=== PATIENT | female | born 1995 | race Caucasian/White ===

== ENCOUNTER 2016-07-24 10:27 | Emergency (ER) | payer SELFPAY ==
[~2016-07-24] VITALS: Ht 157.5 cm; Wt 80.0 kg
[~2016-07-24 10:27] MED LIST: IMITREX
[2016-07-24 10:35] VITALS: Ht 157.5 cm; Wt 80.0 kg
[2016-07-24] MEDS ORDERED: SOD CHLORIDE 0.9% 1,000 ML IV STA (12:01)
[2016-07-24] MEDS ORDERED: ONDANSETRON 4 MG INJ IV STA (12:01)
[2016-07-24] MEDS ORDERED: KETOROLAC 30 MG INJ IV STA (12:01)
--- NOTE | 2016-07-24 12:15 | ERD ---
ER Documentation Chief Complaint Date/Time DATE: 07/24/16 TIME: 12:05 Chief Complaint NAUSEA X 1 WEEK, NUMBNESS ON LEG, PALPITATIONS HPI 20-year-old otherwise healthy female presents the emergency department complaining of nausea, vomiting and intermittent lower right sided pelvic pain which she described as a 6 out of 10 cramping pain 1 week. Nausea and vomiting associated with eating. Additionally she notes constipation and straining with defecation. Last dermal bowel movement was 1 week ago. Patient also complains of heart palpitations which she states has been experiencing 4 months however frequency has increased to 2 times per day. Additionally patient reports numbness and tingling of the right leg associated with intermittent low back pain. She states the pain is relieved with repositioning of the leg. She denies any weakness, difficulty with ambulation, or weightbearing. She denies any vaginal bleeding or discharge, dysuria, hematuria , flank pain, shortness of breath, chest pain. Last normal period was 15 June and normal for her. ROS All systems reviewed and are negative except as per history of present illness. Medications Home Meds Active Scripts Electrolyte,Oral (Pedialyte) 1,000 Ml Solution, 100 ML PO Q6 Y for VOMITTING for 7 Days, ML Prov:IJEOMA ESTRADA PA-C 07/24/16 Ondansetron (Ondansetron Odt) 4 Mg Tab.rapdis, 4 MG PO Q6H Y for NAUSEA AND/OR VOMITING, #30 TAB Prov:IJEOMA ESTRADA PA-C 07/24/16 Acetaminophen* (Tylenol*) 325 Mg Tablet, 2 TAB PO Q8 Y for PAIN AND OR ELEVATED TEMP, #20 TAB Prov:IJEOMA ESTRADA PA-C 07/24/16 Reported Medications [Imitrex] No Conflict Check, PRN MIGRAINE 01/27/13 Allergies Allergies: Coded Allergies: No Known Allergy (Unverified , 07/17/11) PMhx/Soc History of Surgery: No Anesthesia Reaction: No Hx Neurological Disorder: Yes (MIGRAINES) Hx Respiratory Disorders: No Hx Cardiac Disorders: No Hx Psychiatric Problems: No Hx Miscellaneous Medical Probl: Yes (MIGRAINES) Hx Alcohol Use: No Hx Substance Use: No Hx Tobacco Use: No Physical Exam Vitals Vital Signs Date Time Temp Pulse Resp B/P Pulse Ox O2 Delivery O2 Flow Rate FiO2 07/24/16 10:35 98.1 89 18 140/79 99 Physical Exam Const: Well-developed, well-nourished, no acute distress Head: Atraumatic Eyes: Normal Conjunctiva, EOMs intact, PERRLA ENT: Normal External Ears, Nose and Mouth. Tympanic membranes without erythema or swelling bilaterally Neck: Full range of motion..~ No meningismus. Resp: Clear to auscultation bilaterally, no wheezes, rales Cardio: Regular rate and rhythm, no murmurs Abd: Tenderness to palpation of the right sided pelvic region. Abdomen soft, otherwise non tender, non distended. Normal bowel sounds. Negative McBurney point tenderness. Negative Marquez sign. Skin: No petechiae or rashes Back: Tenderness to palpation along the right piriformis muscle distribution. Patient notes numbness shooting down the leg when palpating this region. No midline or flank tenderness. Full range of motion at hip joint. Patient able to ambulate with steady gait and bear full weight. Deep tendon reflexes intact bilaterally for lower extremities. Distal sensation intact to light touch. Full flexion and extension at knee and ankle joints. No ecchymosis or obvious deformity. Negative straight leg test. Ext: No cyanosis, or edema Neur: Awake and alert Psych: Normal Mood and Affect Result Diagram: 07/24/16 1245 07/24/16 1245 Results 24 hrs Laboratory Tests Test 07/24/16 12:30 07/24/16 12:45 Urine Color LT. YELLOW Urine Clarity CLEAR Urine pH 5.5 Urine Specific [place] >=1.030 Urine Ketones TRACE Urine Nitrite NEGATIVE Urine Bilirubin NEGATIVE Urine Urobilinogen 0.2 E.U./dL Urine Leukocyte Esterase NEGATIVE Urine Hemoglobin NEGATIVE Urine Glucose NEGATIVE% Urine Total Protein NEGATIVE White Blood Count 7.310^3/ul Red Blood Count 4.5210^6/ul Hemoglobin 9.7g/dl Hematocrit 32.0% Mean Corpuscular Volume 70.8fl Mean Corpuscular Hemoglobin 21.5pg Mean Corpuscular Hemoglobin Concent 30.3g/dl Red Cell Distribution Width 18.0% Platelet Count 97775^3/UL Mean Platelet Volume 10.7fl Neutrophils % 81.7% Lymphocytes % 13.3% Monocytes % 3.7% Eosinophils % 0.7% Basophils % 0.1% Nucleated Red Blood Cells % 0.0/100WBC Neutrophils # 6.010^3/ul Lymphocytes # 1.010^3/ul Monocytes # 0.310^3/ul Eosinophils # 0.110^3/ul Basophils # 0.010^3/ul Nucleated Red Blood Cells # 0.010^3/ul Sodium Level 142mmol/L Potassium Level 3.7mmol/L Chloride Level 106mmol/L Carbon Dioxide Level 23mmol/L Anion Gap 17 Blood Urea Nitrogen 15mg/dl Creatinine 0.78mg/dl Glucose Level 89mg/dl Calcium Level 9.7mg/dl Total Bilirubin 0.3mg/dl Direct Bilirubin 0.00mg/dl Indirect Bilirubin 0.3mg/dl Aspartate Amino Transf (AST/SGOT) 21IU/L Alanine Aminotransferase (ALT/SGPT) 19IU/L Alkaline Phosphatase 98IU/L Total Protein 8.4g/dl Albumin 4.8g/dl Globulin 3.60g/dl Albumin/Globulin Ratio 1.33 Lipase 410U/L Beta HCG, Quantitative 4290.0mIU/ml Current Medications Medications (Trade) Dose Ordered Sig/Angelique Route PRN Reason Start Time Stop Time Status Last Admin Dose Admin Sodium Chloride (NS) 1,000 ml @ 1,000 mls/hr Q1H STAT IV 07/24/16 12:01 07/24/16 13:00 DC 07/24/16 12:59 Ondansetron HCl (Zofran Inj) 4 mg ONCE STAT IV 07/24/16 12:01 07/24/16 12:04 DC 07/24/16 12:59 Ketorolac Tromethamine (Toradol) 30 mg ONCE STAT IV 07/24/16 12:01 07/24/16 12:55 DC Acetaminophen (Tylenol Tab) 650 mg ONCE ONCE PO 07/24/16 13:00 07/24/16 13:01 DC 07/24/16 13:00 Procedures/MDM PROCEDURE: Obstetrical ultrasound with endovaginal images CLINICAL INDICATION: Abdominal Pain, pelvic pain TECHNIQUE: Multiple sonographic images of the pelvis were obtained utilizing a transabdominal and endovaginal technique. The images were reviewed on a PACS workstation. COMPARISON: None. LMP: 06/15/2016 FINDINGS: The uterus measures 9.3 x 5.2 x 6.3 cm. There is marked thickening of the endometrium which measures up to 34 mm in thickness. There is a tiny sonolucency in the endometrium at the level of the fundal apex measuring up to 8 mm in diameter which may be an intrauterine gestational sac. No yolk sac or pole is identified within it. The right ovary measures 3.7 x 2.6 x 2.6 cm. The left ovary measures 2.2 x 1.1 x 1.4 cm. There is normal vascular flow in both ovaries. There is a 2.1 cm partially circumscribed complex cystic lesion with low level internal echoes in the right ovary which is likely a hemorrhagic/corpus luteal cyst. Marked peripheral vascular flow is noted. No significant pelvic free fluid is identified. IMPRESSION: Marked thickening of the endometrium to 34 mm as well as a possible intrauterine gestational sac measuring up to 8 mm in diameter. No yolk sac or pole is identified within it. Correlation with Beta HCG levels is recommended as well as a short-term follow-up ultrasound. 2.1 cm complex cystic lesion in the right ovary is likely a hemorrhagic/corpus luteal cyst. RPTAT: EE Physician Eugenio Date Time Electronically viewed and signed by Physician Eugenio on 07/24/2016 12:49 RA/ CC: IJEOMA ESTRADA PA-C EKG: Rate/Rhythm: Normal Sinus Rhythm QRS, ST, T-waves: No changes consistent w/ acute ischemia Impression: No evidence of ischemia or arrhythmia This is a 20-year-old otherwise healthy female who presents with multiple complaints including nausea, vomiting, constipation, numbness and tingling of the right leg with low back pain, heart palpitations, and right-sided pelvic pain. Vital signs were reviewed. Patient is afebrile, normotensive, non- tachycardic. Patient is not hypoxic. POC urine test was positive. Beta hCG was drawn and recorded at 4290 Vaginal ultrasound revealed evidence of a gestational sac measuring up to 8 mm in diameter, however, no yolk sac or pole is identified within it. There is also a 2.1 cm complex cystic lesion in the right ovary. Patient instructed to return to the emergency department or [facility] [employer] specialist in 48 hours for a repeat ultrasound to rule out ectopic . Patient expressed understanding of and agreement with plan. Abdominal exam with tenderness to the right pelvic region. Otherwise unremarkable. Patient has full range of motion at low back and hip. Neurovascularly intact distally. No complaints of bowel or bladder dysfunction or weakness. Patient reports pain and tingling associated with palpation of the piriformis region. The patient's low back pain is unlikely related to serious etiology. The patient exhibits no clinical signs or symptoms and has no history or risk factors to suggest cauda equina, cord compression, epidural abscess, epidural hematoma, acute aortic aneurysm or dissection. CBC showed showed evidence of anemia however patient denies any active bleeding. CMP showed no evidence of electrolyte abnormalities, severe acidosis, alkalosis , renal failure, or liver disease. Lipase elevated to 410. Patient denies any upper abdominal pain . UA showed no evidence of acute infection or hematuria. She received a bolus of fluids as well as Tylenol and Zofran while in the emergency department and reports improvement of pain symptoms. Patient lower extremity symptoms likely the result of low back pain with sciatica. Patient able to bear weight, ambulate with steady gait and exhibits good strength. Instructions and exercises provided. Patient to follow-up with customer training specialist for MRI if symptoms continue. EKG without evidence of ST elevation, depression or dysrhythmia. I am still awaiting results for a thyroid-stimulating hormone and free T4. I will contact the patient with results or notify her when she returns for repeat ultrasound. Based on patient's history of present illness and physical examination the decision was made to discharge. The patient was re-evaluated after ED treatment and stabilizing measures, and symptoms have improved. There is no evidence of life threatening injuries or illnesses at this time. On re-examination, patient resting in no distress, stable vital signs, reports feeling better and safe for discharge with outpatient follow up with PMD in 1-2 days. Patient given return precautions. Departure Diagnosis: Primary Impression: Multiple complaints Additional Impressions: Sciatic leg pain Low back pain Chronicity: acute Back pain laterality: right Sciatica presence: with sciatica Sciatica laterality: sciatica of right side Qualified Code: M54.41 - Acute right-sided low back pain with right-sided sciatica Palpitations Pelvic pain Nausea & vomiting Vomiting type: unspecified Vomiting Intractability: unspecified Qualified Code: R11.2 - Nausea and vomiting, intractability of vomiting not specified, unspecified vomiting type Weeks of gestation: less than 8 weeks Qualified Code: Z3A.01 - Less than 8 weeks gestation of IJEOMA ESTRADA PA-C Jul 24, 2016 12:15
--- NOTE | 2016-07-24 12:50 | RADRPT ---
PROCEDURE: Obstetrical ultrasound with endovaginal images CLINICAL INDICATION: Abdominal Pain, pelvic pain TECHNIQUE: Multiple sonographic images of the pelvis were obtained utilizing a transabdominal and endovaginal technique. The images were reviewed on a PACS workstation. COMPARISON: None. LMP: 06/15/2016 FINDINGS: The uterus measures 9.3 x 5.2 x 6.3 cm. There is marked thickening of the endometrium which measure s up to 34 mm in thickness. There is a tiny sonolucency in the endometrium at the level of the jorge a l apex measuring up to 8 mm in diameter which may be an intrauterine gestational sac. No yolk sac o r pole is identified within it. The right ovary measures 3.7 x 2.6 x 2.6 cm. The left ovary measures 2.2 x 1.1 x 1.4 cm. There is no rmal vascular flow in both ovaries. There is a 2.1 cm partially circumscribed complex cystic lesion with low level internal echoes in th e right ovary which is likely a hemorrhagic/corpus luteal cyst. Marked peripheral vascular flow is noted. No significant pelvic free fluid is identified. IMPRESSION: Marked thickening of the endometrium to 34 mm as well as a possible intrauterine gestational sac ashly suring up to 8 mm in diameter. No yolk sac or pole is identified within it. Correlation with Beta HCG levels is recommended as well as a short-term follow-up ultrasound. 2.1 cm complex cystic lesion in the right ovary is likely a hemorrhagic/corpus luteal cyst. RPTAT: EE Physician Eugenio Date Time Electronically viewed and signed by Physician Eugenio on 07/24/2016 12:49 /
[2016-07-24] MEDS ORDERED: ACETAMINOPHEN 325 MG TAB PO ONE (13:00)
[2016-07-24 13:06] LABS: ADD UMIC NO; UR BILIRUBIN (Dip) NEGATIVE (NEGATIVE); UR BLOOD (Dip) NEGATIVE (NEGATIVE); UR CLARITY CLEAR (CLEAR); UR COLOR LT. YELLOW (YELLOW); UR GLUCOSE (Dip) NEGATIVE (NEGATIVE); UR KETONES (Dip) TRACE (NEGATIVE); UR LEUKOCYTE ESTERASE (Dip) NEGATIVE (NEGATIVE); UR NITRITE (Dip) NEGATIVE (NEGATIVE); UR TOTAL PROTEIN (Dip) NEGATIVE (NEGATIVE); UR UROBILINOGEN (Dip) 0.2 E.U./dL (0.1-1.0)
[2016-07-24 13:12] LABS: ADD SCAN DIFF NO
[2016-07-24 13:16] LABS: BASOPHILS % 0.1 % (0.0-2.0); EOSINOPHILS # 0.1 10^3/ul (0.0-0.5); EOSINOPHILS % 0.7 % (0.0-7.0); HEMOGLOBIN 9.7 g/dl (12.0-16.0); LYMPHOCYTES % 13.3 % (18.0-55.0); MEAN CORPUSCULAR HEMOGLOBIN 21.5 pg (29.0-33.0); MEAN CORPUSCULAR HGB CONC 30.3 g/dl (32.0-37.0); MEAN CORPUSCULAR VOLUME 70.8 fl (72.0-104.0); MEAN PLATELET VOLUME 10.7 fl (7.4-10.4); MONOCYTE # 0.3 10^3/ul (0.3-0.9); MONOCYTES % 3.7 % (0.0-13.0); NEUTROPHILS % 81.7 % (30.0-74.0); PLATELET COUNT 229 10^3/UL (140-415); RED BLOOD COUNT 4.52 10^6/ul (4.20-5.40); WHITE BLOOD COUNT 7.3 10^3/ul (4.8-10.8)
[2016-07-24 13:33] LABS: ALBUMIN 4.8 g/dl (3.3-4.9); ALBUMIN/GLOBULIN RATIO 1.33; BILIRUBIN,INDIRECT 0.3 mg/dl (0-1.1); BILIRUBIN,TOTAL 0.3 mg/dl (0.2-1.3); CALCIUM 9.7 mg/dl (8.4-10.2); CREATININE 0.78 mg/dl (0.44-1.00); POTASSIUM 3.7 mmol/L (3.5-5.1); TOTAL PROTEIN 8.4 g/dl (6.1-8.1)
[2016-07-24] MEDS ORDERED: ELEC100080 PO (14:17)
[2016-07-24] MEDS ORDERED: ONDA4TAB14 PO (14:17)
[2016-07-24] MEDS ORDERED: ACET325T33 PO (14:17)
== END 2016-07-24 14:46 | disposition home or self-care (01) ==
LOC: FTE 10:27
DX: M54.41 Lumbago with sciatica, right side (principal); R00.2 Palpitations; R10.2 Pelvic and perineal pain; Z33.1 Pregnant state, incidental
CPT/HCPCS: 76830; 76856; 80053; 81003; 83690; 84439; 84443; 84702; 85025; 93005; J1885; J2405; J7030; 36415; 96374

== ENCOUNTER 2016-08-26 23:53 | Emergency (ER) | payer MEDICAID ==
[~2016-08-26] VITALS: Ht 167.6 cm; Wt 106.5 kg
[~2016-08-26 23:53] MED LIST changes: +ACET325T33 PO; +ELEC100080 PO; +ONDA4TAB14 PO
[2016-08-26 23:57] VITALS: Ht 167.6 cm; Wt 106.5 kg
[2016-08-27 02:15] LABS: ADD SCAN DIFF NO
[2016-08-27 02:17] LABS: BASOPHILS % 0.4 % (0.0-2.0); EOSINOPHILS # 0.2 10^3/ul (0.0-0.5); EOSINOPHILS % 1.7 % (0.0-7.0); HEMATOCRIT 31.3 % (37.0-47.0); HEMOGLOBIN 9.5 g/dl (12.0-16.0); LYMPHOCYTES # 2.7 10^3/ul (0.8-2.9); LYMPHOCYTES % 25.6 % (15.0-51.0); MEAN CORPUSCULAR HEMOGLOBIN 21.9 pg (29.0-33.0); MEAN CORPUSCULAR HGB CONC 30.4 g/dl (32.0-37.0); MEAN CORPUSCULAR VOLUME 72.1 fl (82.0-101.0); MEAN PLATELET VOLUME 11.1 fl (7.4-10.4); MONOCYTE # 0.5 10^3/ul (0.3-0.9); MONOCYTES % 4.9 % (0.0-11.0); NEUTROPHIL # 7.1 10^3/ul (1.6-7.5); PLATELET COUNT 230 10^3/UL (140-415); RED BLOOD COUNT 4.34 10^6/ul (4.20-5.40); RED CELL DISTRIBUTION WIDTH 18.9 % (11.5-14.5); WHITE BLOOD COUNT 10.6 10^3/ul (4.8-10.8)
[2016-08-27 02:24] LABS: ADD UMIC YES; UR ASCORBIC ACID NEGATIVE (NEGATIVE); UR BILIRUBIN (Dip) NEGATIVE (NEGATIVE); UR BLOOD (Dip) 3+ mg/dL (NEGATIVE); UR CLARITY SLIGHTLY CLOUDY (CLEAR); UR COLOR YELLOW (YELLOW); UR GLUCOSE (Dip) NEGATIVE (NEGATIVE); UR KETONES (Dip) NEGATIVE (NEGATIVE); UR LEUKOCYTE ESTERASE (Dip) TRACE Leu/ul (NEGATIVE); UR MUCUS FEW /HPF (NONE SEEN); UR NITRITE (Dip) NEGATIVE (NEGATIVE); UR RBC 146 /HPF (0-5); UR TOTAL PROTEIN (Dip) 1+ mg/dl (NEGATIVE); UR UROBILINOGEN (Dip) NEGATIVE (NEGATIVE)
[2016-08-27] MEDS ORDERED: ACETAMINOPHEN 500 MG TAB PO STA (02:34)
--- NOTE | 2016-08-27 02:39 | RADRPT ---
PROCEDURE: US OB. CLINICAL INDICATION: , vaginal bleeding. TECHNIQUE: Multiple sonographic images of the pelvis were obtained. Transabdominal views of the p criselda are available for review. The images were reviewed on a PACS workstation. COMPARISON: No prior studies are available for comparison. FINDINGS: There is a single intrauterine . The mean gestational sac diameter measures 2.27 cm, corres ponding to a 1-olzc-8-day . The crown-rump length equals 1.55 cm which corresponds to a 8- week-0-day gestational age by ultrasound criteria. cardiac activity could not be identified. A possible small to moderate subchorionic hematoma is identified. The ovaries are not visualized. The adnexa are unremarkable. There is no free pelvic fluid. IMPRESSION: 1. Single intrauterine gestation of approximately 7 weeks 4 days. cardiac activity could not be identified, suspicious for early failure. Continued follow-up is recommended. 2. Possible small to moderate subchorionic hematoma. 3. The ovaries are not visualized. RPTAT: HTAR .Edilberto Kim MD, Date Time Electronically viewed and signed by .Edilberto Kim MD, on 08/27/2016 02:39 .R/
[2016-08-27 02:47] VITALS: BP 127/71; PULSE 69; RESP 20; TEMP 97.7
[2016-08-27] MEDS ORDERED: TYL500 PO (03:39)
--- NOTE | 2016-08-27 03:47 | ERD ---
ER Documentation Chief Complaint Date/Time DATE: 08/27/16 TIME: 03:45 Chief Complaint Pt c/o bleeding and passing clots today, light bleeding for 2 weeks HPI This is a 21-year-old female that presents to the ER with vaginal bleeding that started today. Patient states that bleeding has become more heavy and she is passing clots. Patient states she is currently about 10 weeks A0. Patient admits to pelvic pain she denies any vaginal discharge. She denies any urinary frequency or dysuria. ROS 12 point review of systems was done, all negative except per HPI. Medications Home Meds Active Scripts Acetaminophen* (Tylenol*) 500 Mg Tab, 1000 MG PO Q8H Y for PAIN AND OR ELEVATED TEMP for 3 Days, TAB Prov:CHIRAG HAWLEY 08/27/16 Electrolyte,Oral (Pedialyte) 1,000 Ml Solution, 100 ML PO Q6 Y for VOMITTING for 7 Days, ML Prov:IJEOMA ESTRADA PA-C 07/24/16 Ondansetron (Ondansetron Odt) 4 Mg Tab.rapdis, 4 MG PO Q6H Y for NAUSEA AND/OR VOMITING, #30 TAB Prov:IJEOMA ESTRADA PA-C 07/24/16 Acetaminophen* (Tylenol*) 325 Mg Tablet, 2 TAB PO Q8 Y for PAIN AND OR ELEVATED TEMP, #20 TAB Prov:IJEOMA ESTRADA PA-C 07/24/16 Reported Medications [Imitrex] No Conflict Check, PRN MIGRAINE 01/27/13 Allergies Allergies: Coded Allergies: No Known Allergy (Unverified , 07/17/11) PMhx/Soc History of Surgery: No Anesthesia Reaction: No Hx Neurological Disorder: Yes (MIGRAINES) Hx Respiratory Disorders: No Hx Cardiac Disorders: No Hx Psychiatric Problems: No Hx Miscellaneous Medical Probl: Yes (MIGRAINES) Hx Alcohol Use: No Hx Substance Use: No Hx Tobacco Use: No Smoking Status: Never smoker Physical Exam Vitals Vital Signs Date Time Temp Pulse Resp B/P Pulse Ox O2 Delivery O2 Flow Rate FiO2 08/27/16 02:47 97.7 69 20 127/71 100 Room Air 08/26/16 23:57 98.3 72 16 129/65 100 Physical Exam GENERAL: The patient is well developed and appropriate for usual state of health , in no apparent distress. HEENT: Atraumatic. Conjunctivae are pink. Pupils equal, round, and reactive to light. Extraocular muscles are grossly intact. Bilateral tympanic membranes are clear with no evidence of erythema, effusion or dulling of the light reflex. The oropharynx is clear with no erythema or exudates. NECK: C-spine is soft and supple. There is no cervical lymphadenopathy. CHEST: Clear to auscultation bilaterally. There are no rales, wheezes or rhonchi. HEART: Regular rate and rhythm. No murmurs, clicks, rubs or gallops. ABDOMEN: Soft, nontender and nondistended. Good bowel sounds. No rebound or guarding. No gross peritonitis. No gross organomegaly or masses. No Marquez sign or McBurney point tenderness. BACK: No midline or flank tenderness. EXTREMITIES: Equal pulses bilaterally. There is no peripheral clubbing, cyanosis or edema. No focal swelling or erythema. Full range of motion. Grossly neurovascularly intact. NEURO: Alert and oriented. Cranial nerves II through XII are intact. Motor strength in all 4 extremities with 5/5 strength. Sensation grossly intact. Normal speech and gait. SKIN: There is no apparent rash or petechia. The skin is warm and dry. Result Diagram: 08/27/16 0128 Results 24 hrs Laboratory Tests Test 08/27/16 01:19 08/27/16 01:28 Urine Color YELLOW Urine Clarity SLIGHTLY CLOUDY Urine pH 5.0 Urine Specific [place] 1.030 Urine Ketones NEGATIVEmg/dL Urine Nitrite NEGATIVEmg/dL Urine Bilirubin NEGATIVEmg/dL Urine Urobilinogen NEGATIVEmg/dL Urine Leukocyte Esterase TRACELeu/ul Urine Microscopic RBC 146/HPF Urine Microscopic WBC 14/HPF Urine Mucus FEW/HPF Urine Hemoglobin 3+mg/dL Urine Glucose NEGATIVEmg/dL Urine Total Protein 1+mg/dl White Blood Count 10.610^3/ul Red Blood Count 4.3410^6/ul Hemoglobin 9.5g/dl Hematocrit 31.3% Mean Corpuscular Volume 72.1fl Mean Corpuscular Hemoglobin 21.9pg Mean Corpuscular Hemoglobin Concent 30.4g/dl Red Cell Distribution Width 18.9% Platelet Count 83684^3/UL Mean Platelet Volume 11.1fl Neutrophils % 67.0% Lymphocytes % 25.6% Monocytes % 4.9% Eosinophils % 1.7% Basophils % 0.4% Nucleated Red Blood Cells % 0.0/100WBC Neutrophils # 7.110^3/ul Lymphocytes # 2.710^3/ul Monocytes # 0.510^3/ul Eosinophils # 0.210^3/ul Basophils # 0.010^3/ul Nucleated Red Blood Cells # 0.010^3/ul Beta HCG, Quantitative 34469.0mIU/ml Current Medications Medications (Trade) Dose Ordered Sig/Angelique Route PRN Reason Start Time Stop Time Status Last Admin Dose Admin Acetaminophen (Tylenol Tab) 1,000 mg ONCE STAT PO 08/27/16 02:34 08/27/16 02:36 DC 08/27/16 02:38 Procedures/MDM Differential diagnosis: Threatened , missed , incomplete , ectopic , molar , UTI, pyelonephritis. Unfortunately this appears to be a threatened , patient continues to pass clots in the ER and on ultrasound there was no heart tones detected. Patient needs to return to ER or follow-up with her OB within 48 hours. She is to return to ER sooner if symptoms worsen. Patient will be sent home with Tylenol for pain. Patient my medical decision making with the patient she understands and agrees with plan. Departure Diagnosis: Primary Impression: Threatened Condition: Stable Patient Instructions: Possible Miscarriage (Threatened ) Additional Instructions: Call your primary care doctor TOMORROW for an appointment during the next 1-2 days.See the doctor sooner or return here if your condition worsens before your appointment time. CHIRAG HAWLEY Aug 27, 2016 03:47
[2016-08-27] MEDS ORDERED: ACET500C5 PO (13:44)
[2016-08-27] MEDS ORDERED: ONDA4TAB8 PO (13:44)
== END 2016-08-27 04:03 | disposition home or self-care (01) ==
LOC: FTE 23:53
DX: O20.0 Threatened abortion (principal); Z3A.01 Less than 8 weeks gestation of pregnancy
CPT/HCPCS: 36415; 76801; 81001; 84702; 85025; 86900; 86901; Z7502; Z7610

== ENCOUNTER 2016-08-27 11:51 | Emergency (ER) | payer MEDICAID ==
[~2016-08-27] VITALS: Wt 105.5 kg
[~2016-08-27 11:51] MED LIST changes: +TYL500 PO
[2016-08-27] MEDS ORDERED: ONDANSETRON (ODT) 4 MG TAB ODT STA (12:20)
[2016-08-27] MEDS ORDERED: ACETAMINOPHEN 500 MG TAB PO STA (12:20)
--- NOTE | 2016-08-27 12:32 | ERD ---
ER Documentation Chief Complaint Date/Time DATE: 08/27/16 TIME: 12:30 Chief Complaint VAG BLEED SINCE THIS AM.8 WKS . VOMITING. NO DIARHEA HPI This a 21-year-old female presents emergency department today complaining of vaginal bleeding and cramping that started last night. Patient states she was here in the emergency department earlier. States she continues to have vaginal bleeding and cramping and passed a "large clot". States she has some nausea. Denies any fevers or chills. ROS All systems reviewed and are negative except as per history of present illness. Medications Home Meds Active Scripts Ondansetron Hcl* (Zofran*) 4 Mg Tablet, 4 MG PO Q6H for NAUSEA AND/OR VOMITING, #30 TAB Prov:DAVON TAVARES PA-C 08/27/16 Acetaminophen* (Tylophen*) 500 Mg Capsule, 1 CAP PO Q6H Y for PAIN AND OR ELEVATED TEMP, #30 CAP Prov:DAVON TAVARES PA-C 08/27/16 Acetaminophen* (Tylenol*) 500 Mg Tab, 1000 MG PO Q8H Y for PAIN AND OR ELEVATED TEMP for 3 Days, TAB Prov:CHIRAG HAWLEY 08/27/16 Electrolyte,Oral (Pedialyte) 1,000 Ml Solution, 100 ML PO Q6 Y for VOMITTING for 7 Days, ML Prov:IJEOMA ESTRADA PA-C 07/24/16 Ondansetron (Ondansetron Odt) 4 Mg Tab.rapdis, 4 MG PO Q6H Y for NAUSEA AND/OR VOMITING, #30 TAB Prov:IJEOMA ESTRADA PA-C 07/24/16 Acetaminophen* (Tylenol*) 325 Mg Tablet, 2 TAB PO Q8 Y for PAIN AND OR ELEVATED TEMP, #20 TAB Prov:IJEOMA ESTRADA PA-C 07/24/16 Reported Medications [Imitrex] No Conflict Check, PRN MIGRAINE 01/27/13 Allergies Allergies: Coded Allergies: No Known Allergy (Unverified , 07/17/11) PMhx/Soc History of Surgery: No Anesthesia Reaction: No Hx Neurological Disorder: No Hx Respiratory Disorders: No Hx Cardiac Disorders: No Hx Psychiatric Problems: No Hx Miscellaneous Medical Probl: No Hx Alcohol Use: No Hx Substance Use: No Hx Tobacco Use: No Smoking Status: Never smoker Physical Exam Vitals Vital Signs Date Time Temp Pulse Resp B/P Pulse Ox O2 Delivery O2 Flow Rate FiO2 08/27/16 11:55 97.9 79 20 140/74 99 Physical Exam Const: Obese, no acute distress Head: Atraumatic Eyes: Normal Conjunctiva ENT: Normal External Ears, Nose and Mouth. Neck: Full range of motion..~ No meningismus. Resp: Clear to auscultation bilaterally Cardio: Regular rate and rhythm, no murmurs Abd: Soft, suprapubic tenderness non distended. Normal bowel sounds. No tenderness at McBurney's. : Vaginal exam shows active vaginal bleeding with clots and open cervix. Skin: No petechiae or rashes Back: No midline or flank tenderness Ext: No cyanosis, or edema Neur: Awake and alert Psych: Normal Mood and Affect Result Diagram: 08/27/16 1231 Results 24 hrs Laboratory Tests Test 08/27/16 12:31 White Blood Count 12.210^3/ul Red Blood Count 4.1410^6/ul Hemoglobin 9.2g/dl Hematocrit 29.4% Mean Corpuscular Volume 71.0fl Mean Corpuscular Hemoglobin 22.2pg Mean Corpuscular Hemoglobin Concent 31.3g/dl Red Cell Distribution Width 18.6% Platelet Count 28680^3/UL Mean Platelet Volume 10.5fl Neutrophils % 83.1% Lymphocytes % 11.4% Monocytes % 4.3% Eosinophils % 0.6% Basophils % 0.2% Nucleated Red Blood Cells % 0.0/100WBC Neutrophils # 10.110^3/ul Lymphocytes # 1.410^3/ul Monocytes # 0.510^3/ul Eosinophils # 0.110^3/ul Basophils # 0.010^3/ul Nucleated Red Blood Cells # 0.010^3/ul Current Medications Medications (Trade) Dose Ordered Sig/Angelique Route PRN Reason Start Time Stop Time Status Last Admin Dose Admin Acetaminophen (Tylenol Tab) 500 mg ONCE STAT PO 08/27/16 12:20 08/27/16 12:22 DC 08/27/16 12:31 Ondansetron HCl (Zofran Odt) 4 mg ONCE STAT ODT 08/27/16 12:20 08/27/16 12:22 DC 08/27/16 12:31 Procedures/MDM Is a 21-year-old female who presents to the emergency department today for vaginal bleeding. Patient was seen here in the emergency department and discharged less than 12 hours ago. Patient states that she passed a large clot and is continuing to have vaginal cramping and bleeding. Patient had a full OB workup done here earlier this morning. Her hemoglobin this morning was 9.5. Her beta quant was 17937 and she is O+. There is no indication for RhoGam at this time. Her ultrasound done approximately 12 hours ago showed a single intrauterine gestation of approximately 7 weeks and 4 days however cardiac activity could not be identified and it was suspicious for early failure. There is also small to moderate subchorionic hematoma. There is no pelvic free fluid. The adnexa were unremarkable. I did repeat patient's CBC today given that her hemoglobin this morning was 9.5. I also placed a call to Dr. Booth, the laborist control clerk and he does not feel that the patient needs a repeat beta quant or ultrasound at this time given that she just had this workup less than 12 hours ago. I did do a vaginal exam on the patient and I was able to remove a few of the clots from the cervix. Tissue was sent to pathology for further evaluation. Patient symptoms at this time is consistent with vaginal bleeding in early and likely in process . CBC shows a mildly elevated white blood cell count. Her hemoglobin is 9.2 which is very mildly decreased from this morning at 9.5. There is no indication for transfusion at this time. I have explained this to the patient. I have explained her that she may continue to have vaginal bleeding I did do a vaginal exam on the patient otherwise active bleeding however I was able to remove some clots from the cervix and the bleeding slowed. Patient did indicate that her cramping and abdominal pain became less after each passage of tissue clot. Patient may follow-up with her [employer] as planned next week Patient was given Tylenol and Zofran here in the emergency department. She will begin a prescription for Tylenol and Zofran for home At this time the patient is stable for discharge and outpatient management. Patient should follow up with their PCP in the next 1-2 days. They may return to the emergency department sooner for any persistent or worsening of symptoms. Patient understood and agreed with the plan. Departure Diagnosis: Primary Impression: Vaginal bleeding in patient at less than 20 weeks gestation Condition: DAVON Oneill PA-C Aug 27, 2016 12:32
[2016-08-27 12:42] LABS: ADD SCAN DIFF NO
[2016-08-27 12:43] LABS: BASOPHILS % 0.2 % (0.0-2.0); EOSINOPHILS # 0.1 10^3/ul (0.0-0.5); EOSINOPHILS % 0.6 % (0.0-7.0); HEMATOCRIT 29.4 % (37.0-47.0); HEMOGLOBIN 9.2 g/dl (12.0-16.0); LYMPHOCYTES # 1.4 10^3/ul (0.8-2.9); LYMPHOCYTES % 11.4 % (15.0-51.0); MEAN CORPUSCULAR HEMOGLOBIN 22.2 pg (29.0-33.0); MEAN CORPUSCULAR HGB CONC 31.3 g/dl (32.0-37.0); MEAN PLATELET VOLUME 10.5 fl (7.4-10.4); MONOCYTE # 0.5 10^3/ul (0.3-0.9); MONOCYTES % 4.3 % (0.0-11.0); NEUTROPHIL # 10.1 10^3/ul (1.6-7.5); NEUTROPHILS % 83.1 % (39.0-77.0); PLATELET COUNT 197 10^3/UL (140-415); RED BLOOD COUNT 4.14 10^6/ul (4.20-5.40); RED CELL DISTRIBUTION WIDTH 18.6 % (11.5-14.5); WHITE BLOOD COUNT 12.2 10^3/ul (4.8-10.8)
[2016-08-27] MEDS ORDERED: ACET500C5 PO (13:44)
[2016-08-27] MEDS ORDERED: ONDA4TAB8 PO (13:44)
== END 2016-08-27 13:52 | disposition home or self-care (01) ==
LOC: FTE 11:51
DX: O20.9 Hemorrhage in early pregnancy, unspecified (principal); Z3A.08 8 weeks gestation of pregnancy
CPT/HCPCS: 85025; 88305; Z7502; Z7610; 99283

== ENCOUNTER 2016-08-29 09:10 | Emergency (ER) | payer MEDICAID ==
[~2016-08-29] VITALS: Ht 165.1 cm; Wt 105.0 kg
[~2016-08-29 09:10] MED LIST changes: +ACET500C5 PO; +ONDA4TAB8 PO
[2016-08-29 09:19] VITALS: Ht 165.1 cm; Wt 105.0 kg
[2016-08-29] MEDS ORDERED: morphine 4 MG/ML VIAL IV STA ×2 (09:38)
[2016-08-29] MEDS ORDERED: SOD CHLORIDE 0.9% 1,000 ML IV STA (09:38)
--- NOTE | 2016-08-29 09:43 | ERD ---
ER Documentation Chief Complaint Date/Time DATE: 08/29/16 TIME: 09:41 Chief Complaint vag bleed with abd cramping since saturday , miscarriage HPI 21-year-old female who is 1 P0 presents with vaginal bleeding, lower abdominal cramping going her back with nausea vomiting after experiencing what sounds to be a miscarriage. She was seen here on August 27. There is an IUP seen however no heart tones and then presented again the next morning with blood clots and tissue where a biopsy was done. She comes in with cramping pain that starts in the suprapubic region radiates diffusely to her lower back. She began having spit nausea vomiting since this morning at 3 AM. She has not had any fevers or chills. Denies diarrhea. Denies chest pain or shortness of breath. Patient reports she has a follow-up appointment this Saturday which is 3 days from now with Dr. Osuna. LMP reported was on June ROS All systems reviewed and are negative except as per history of present illness. Medications Home Meds Active Scripts Ferrous Sulfate* (Ferrous Sulfate*) 325 Mg Tabec, 325 MG PO BID, #60 TAB Prov:CINDY HAAS PA-C 08/29/16 Ondansetron (Ondansetron Odt) 4 Mg Tab.rapdis, 4 MG PO Q6H Y for NAUSEA AND/OR VOMITING, #10 TAB Prov:CINDY HAAS PA-C 08/29/16 Hydrocodone/Acetaminophen ([place] 5-325 Tablet) 1 Each Tablet, 1 TAB PO Q6H Y for PAIN, #15 TAB Prov:CINDY HAAS PA-C 08/29/16 Ondansetron Hcl* (Zofran*) 4 Mg Tablet, 4 MG PO Q6H for NAUSEA AND/OR VOMITING, #30 TAB Prov:DAVON TAVARES PA-C 08/27/16 Acetaminophen* (Tylophen*) 500 Mg Capsule, 1 CAP PO Q6H Y for PAIN AND OR ELEVATED TEMP, #30 CAP Prov:DAVON TAVARES PA-C 08/27/16 Acetaminophen* (Tylenol*) 500 Mg Tab, 1000 MG PO Q8H Y for PAIN AND OR ELEVATED TEMP for 3 Days, TAB Prov:CHIRAG HAWLEY 08/27/16 Electrolyte,Oral (Pedialyte) 1,000 Ml Solution, 100 ML PO Q6 Y for VOMITTING for 7 Days, ML Prov:IJEOMA ESTRADAKael VALDOVINOS 07/24/16 Ondansetron (Ondansetron Odt) 4 Mg Tab.rapdis, 4 MG PO Q6H Y for NAUSEA AND/OR VOMITING, #30 TAB Prov:IJEOMA ESTRADA ARUNA 07/24/16 Acetaminophen* (Tylenol*) 325 Mg Tablet, 2 TAB PO Q8 Y for PAIN AND OR ELEVATED TEMP, #20 TAB Prov:IJEOMA ESTRADA ARUNA 07/24/16 Reported Medications [Imitrex] No Conflict Check, PRN MIGRAINE 01/27/13 Allergies Allergies: Coded Allergies: No Known Allergy (Unverified , 07/17/11) PMhx/Soc History of Surgery: No Anesthesia Reaction: No Hx Neurological Disorder: No Hx Respiratory Disorders: No Hx Cardiac Disorders: No Hx Psychiatric Problems: No Hx Miscellaneous Medical Probl: No Hx Alcohol Use: No Hx Substance Use: No Hx Tobacco Use: No Physical Exam Vitals Vital Signs Date Time Temp Pulse Resp B/P Pulse Ox O2 Delivery O2 Flow Rate FiO2 08/29/16 09:19 97.2 70 18 139/60 99 Physical Exam General: Well-developed, well-nourished. The patient appears in no acute distress. HEENT: Head is normocephalic, atraumatic. No scleral icterus. Neck: Supple. Nontender. Lungs: Clear to auscultation. Normal air movement. Heart: Regular rate and rhythm. S1 and S2 are normal. No murmurs, gallops, or rubs. Abdomen: Soft, nontender, nondistended. Bowel sounds are normoactive. : Positive slightly open however there are no clots, there is vaginal bleeding , no hemorrhage. No CMT tenderness. No masses Extremities: No clubbing or cyanosis. Normal pulses. Moving extremities x 4. No weakness. Neurologic: Alert and oriented 3. No focal deficits. Skin: Normal turgor. No rash or lesions. Result Diagram: 08/29/16 1010 08/29/16 1010 Results 24 hrs Laboratory Tests Test 08/29/16 10:10 08/29/16 10:15 White Blood Count 11.210^3/ul Red Blood Count 4.4210^6/ul Hemoglobin 9.7g/dl Hematocrit 32.0% Mean Corpuscular Volume 72.4fl Mean Corpuscular Hemoglobin 21.9pg Mean Corpuscular Hemoglobin Concent 30.3g/dl Red Cell Distribution Width 19.0% Platelet Count 43802^3/UL Mean Platelet Volume 10.7fl Neutrophils % 83.6% Lymphocytes % 12.7% Monocytes % 2.3% Eosinophils % 0.7% Basophils % 0.2% Nucleated Red Blood Cells % 0.0/100WBC Neutrophils # 9.310^3/ul Lymphocytes # 1.410^3/ul Monocytes # 0.310^3/ul Eosinophils # 0.110^3/ul Basophils # 0.010^3/ul Nucleated Red Blood Cells # 0.010^3/ul Sodium Level 147mmol/L Potassium Level 3.9mmol/L Chloride Level 105mmol/L Carbon Dioxide Level 24mmol/L Anion Gap 22 Blood Urea Nitrogen 15mg/dl Creatinine 0.81mg/dl Glucose Level 115mg/dl Calcium Level 9.4mg/dl Total Bilirubin 0.0mg/dl Direct Bilirubin 0.00mg/dl Indirect Bilirubin 0.0mg/dl Aspartate Amino Transf (AST/SGOT) 18IU/L Alanine Aminotransferase (ALT/SGPT) 27IU/L Alkaline Phosphatase 93IU/L Total Protein 8.1g/dl Albumin 4.3g/dl Globulin 3.80g/dl Albumin/Globulin Ratio 1.13 Beta HCG, Quantitative 1552.4mIU/ml Urine Color YELLOW Urine Clarity CLEAR Urine pH 6.0 Urine Specific [place] 1.018 Urine Ketones NEGATIVEmg/dL Urine Nitrite NEGATIVEmg/dL Urine Bilirubin NEGATIVEmg/dL Urine Urobilinogen NEGATIVEmg/dL Urine Leukocyte Esterase NEGATIVELeu/ul Urine Microscopic RBC 73/HPF Urine Microscopic WBC 8/HPF Urine Hemoglobin 3+mg/dL Urine Glucose NEGATIVEmg/dL Urine Total Protein NEGATIVEmg/dl Current Medications Medications (Trade) Dose Ordered Sig/Angelique Route PRN Reason Start Time Stop Time Status Last Admin Dose Admin Sodium Chloride (NS) 1,000 ml @ 1,000 mls/hr Q1H STAT IV 08/29/16 09:38 08/29/16 10:37 DC 08/29/16 10:03 Morphine Sulfate (morphine) 4 mg ONCE STAT IV 08/29/16 09:38 7/19/17 09:40 DC 08/29/16 10:03 Morphine Sulfate (morphine) 4 mg ONCE STAT IV 08/29/16 09:38 08/29/16 09:40 DC Procedures/MDM ED course: Patient had an IV line established, blood and urine were obtained, ultrasound was ordered. For pain she was given morphine 4 mg followed by Zofran 4 mg and a fluid bolus of normal saline 1 L. The patient's abdominal pain was reexamined. Patient was sitting comfortably with improved pain. Patient was not in any distress. Medical decision making: This 21-year-old female presents with a miscarriage, ultrasound today shows spontaneous , without any retained products. Previous ultrasound showed an intrauterine at approximately 7 weeks ago and no heart tones. She presented the next day with vaginal bleeding and pain likely from an active miscarriage. Her beta quantitative has reduced significantly to 1500. She is hemodynamically stable and does not have any signs of infection. She will be given copies of her ultrasound and labs, she is to follow-up with her OB and she has an appointment with them on Saturday. The case was reviewed and discussed with Dr. Wallace who agrees with the plan of care including labs, treatment, and advanced imaging as appropriate. Departure Diagnosis: Primary Impression: Complete miscarriage Condition: CINDY Morris PA-C Aug 29, 2016 09:43
[2016-08-29 10:33] LABS: ADD SCAN DIFF NO
[2016-08-29 10:41] LABS: BASOPHILS % 0.2 % (0.0-2.0); EOSINOPHILS # 0.1 10^3/ul (0.0-0.5); EOSINOPHILS % 0.7 % (0.0-7.0); HEMOGLOBIN 9.7 g/dl (12.0-16.0); LYMPHOCYTES # 1.4 10^3/ul (0.8-2.9); LYMPHOCYTES % 12.7 % (15.0-51.0); MEAN CORPUSCULAR HEMOGLOBIN 21.9 pg (29.0-33.0); MEAN CORPUSCULAR HGB CONC 30.3 g/dl (32.0-37.0); MEAN CORPUSCULAR VOLUME 72.4 fl (82.0-101.0); MEAN PLATELET VOLUME 10.7 fl (7.4-10.4); MONOCYTE # 0.3 10^3/ul (0.3-0.9); MONOCYTES % 2.3 % (0.0-11.0); NEUTROPHIL # 9.3 10^3/ul (1.6-7.5); NEUTROPHILS % 83.6 % (39.0-77.0); PLATELET COUNT 231 10^3/UL (140-415); RED BLOOD COUNT 4.42 10^6/ul (4.20-5.40); WHITE BLOOD COUNT 11.2 10^3/ul (4.8-10.8)
[2016-08-29 10:51] LABS: ALBUMIN 4.3 g/dl (3.3-4.9); ALBUMIN/GLOBULIN RATIO 1.13; CALCIUM 9.4 mg/dl (8.4-10.2); CREATININE 0.81 mg/dl (0.44-1.00); POTASSIUM 3.9 mmol/L (3.5-5.1); TOTAL PROTEIN 8.1 g/dl (6.1-8.1)
[2016-08-29 11:31] LABS: ADD UMIC YES; UR ASCORBIC ACID NEGATIVE (NEGATIVE); UR BILIRUBIN (Dip) NEGATIVE (NEGATIVE); UR BLOOD (Dip) 3+ mg/dL (NEGATIVE); UR CLARITY CLEAR (CLEAR); UR COLOR YELLOW (YELLOW); UR GLUCOSE (Dip) NEGATIVE (NEGATIVE); UR KETONES (Dip) NEGATIVE (NEGATIVE); UR LEUKOCYTE ESTERASE (Dip) NEGATIVE Leu/ul (NEGATIVE); UR NITRITE (Dip) NEGATIVE (NEGATIVE); UR RBC 73 /HPF (0-5); UR SPECIFIC GRAVITY (Dip) 1.018 (1.003-1.030); UR TOTAL PROTEIN (Dip) NEGATIVE (NEGATIVE); UR UROBILINOGEN (Dip) NEGATIVE (NEGATIVE)
--- NOTE | 2016-08-29 11:41 | RADRPT ---
PROCEDURE: US OB. CLINICAL INDICATION: Vaginal bleeding in . TECHNIQUE: Transabdominal and endovaginal imaging of the uterus is available for review COMPARISON: Pelvic ultrasound dated 08/27/2016 FINDINGS: No intrauterine is identified. The endometrial stripe is homogeneous and measures 13 mm i n thickness. The uterus is otherwise unremarkable. The ovaries are unremarkable. No adnexal mass is identified. No free fluid is noted within the pelvis. IMPRESSION: Interval spontaneous . No intrauterine or retained products of conception identif ied. RPTAT: HH .Rose Mary Srinivasan MD, MD Date Time Electronically viewed and signed by .Rose Mary Srinivasan MD, MD on 08/29/2016 11:41 .G/
[2016-08-29] MEDS ORDERED: ONDA4TAB14 PO (12:14)
[2016-08-29] MEDS ORDERED: HYDR-906 PO (12:14)
[2016-08-29] MEDS ORDERED: FER325 PO (12:16)
[2016-08-29 12:32] VITALS: BP 112/62; PULSE 76; RESP 18; TEMP 98
== END 2016-08-29 12:30 | disposition home or self-care (01) ==
LOC: FTE 09:10
DX: O03.9 Complete or unspecified spontaneous abortion without complication (principal); R10.2 Pelvic and perineal pain
CPT/HCPCS: 76801; 80053; 81001; 84702; 85025; J2270; J7030; 36415; 96374

== ENCOUNTER 2017-05-01 23:15 | Outpatient (CLI) | END 2017-05-02 03:50 | disposition home or self-care (01) ==

== ENCOUNTER 2017-08-05 19:00 | Inpatient (IN) | END 2017-08-06 12:30 | disposition home or self-care (01) | DRG 781 ==

== ENCOUNTER 2017-08-11 08:55 | Inpatient (IN) | END 2017-08-15 16:15 | disposition home or self-care (01) | DRG 765 ==